=== PATIENT | male | born 2005 | race Caucasian/White ===

== ENCOUNTER 2024-03-07 06:39 | Emergency (ER) | payer BC ==
[~2024-03-07] VITALS: Ht 167.6 cm; Wt 61.5 kg
[2024-03-07 06:41] VITALS: BP 132/71; TEMP 96.6; O2SAT 100
[2024-03-07] MEDS ORDERED: AMOX875T2 PO (07:16)
[2024-03-07] MEDS ORDERED: KETO10TAB PO (07:16)
== END 2024-03-07 07:28 | disposition home or self-care (01) ==
LOC: M ED 06:39
DX: K02.9 Dental caries, unspecified (principal)